=== PATIENT | female | born 1965 | race Caucasian/White ===

== ENCOUNTER 2020-02-24 13:56 | Outpatient (CLI) | payer OTHER ==
--- NOTE | 2020-02-24 15:01 | XRAY Report ---
PROCEDURE: Shoulder 3 View RT INDICATIONS: REPETITIVE STRAIN INJURY OF R SHOULDER TECHNIQUE: 3 views of the shoulder were acquired. COMPARISON: None. FINDINGS: Bones: No fractures or dislocations. No suspicious bony lesions. Mild degenerative changes are pre sent at the acromioclavicular joint. Visualized ribs appear intact. Soft tissues: No suspicious soft tissue calcifications. IMPRESSION: Mild degenerative change. No acute radiographic findings. If pain persists, cross-sectio nal imaging could be considered to further characterize findings. Reviewed by: Calista Jamison MD on 02/24/2020 1:59 PM [facility] Approved by: Calista Jamison MD on 02/24/2020 1:59 PM [facility] Station ID: [id number]
== END 2020-02-24 23:59 | disposition home or self-care (01) ==
LOC: DI.N 13:56
PROVIDERS: ATTEND Physician Assistant Medical
DX: M70.911 Unspecified soft tissue disorder related to use, overuse and pressure, right shoulder (principal); M19.011 Primary osteoarthritis, right shoulder

== ENCOUNTER 2020-03-06 09:20 | Outpatient (CLI) | payer OTHER ==
[2020-03-06 11:50] LABS: BASOPHILS % (AUTO) 0.3 %; EOSINOPHILS # (AUTO) 0.2 10^3/uL (0.0-0.7); EOSINOPHILS % (AUTO) 2.7 %; HGB - HEMOGLOBIN 14.2 g/dL (12.0-16.0); LYMPHOCYTES % (AUTO) 15.5 %; MEAN CORPUSCULAR HEMOGLOBIN 31.6 pg (27.0-31.0); MEAN CORPUSCULAR VOLUME 95.8 fL (81.0-99.0); MEAN PLATELET VOLUME 11.1 fL (7.9-10.8); MONOCYTES # (AUTO) 0.6 10^3/uL (0.0-1.0); NEUTROPHILS # (AUTO) 4.8 10^3/uL (1.5-6.6); NEUTROPHILS % (AUTO) 72.2 %; PLT - PLATELET COUNT 266 10^3/uL (130-450); RED BLOOD COUNT 4.49 10^6/uL (4.20-5.40); RED CELL DISTRIBUTION WIDTH 14.1 % (12.0-15.0); WHITE BLOOD COUNT 6.6 x10^3/uL (4.8-10.8)
[2020-03-06 12:30] LABS: ALBUMIN 4.2 g/dL (3.2-5.5); ALBUMIN/GLOBULIN RATIO 1.5 (1.0-2.2); ALKALINE PHOSPHATASE 106 IU/L (42-121); ALT ALANINE AMINOTRANSFERASE 29 IU/L (10-60); AST ASPARTATE AMINOTRANSFERASE 24 IU/L (10-42); BILIRUBIN,TOTAL 0.6 mg/dL (0.2-1.0); BUN - BLOOD UREA NITROGEN 16 mg/dL (6-20); CALCIUM 9.5 mg/dL (8.5-10.3); CARBON DIOXIDE - CO2 23 mmol/L (21-32); CHLORIDE 106 mmol/L (101-111); CHOL/HDL RATIO 4.7 (<4.4); CHOLESTEROL 258 mg/dL; CREATININE 0.8 mg/dL (0.4-1.0); GLUCOSE 101 mg/dL (70-100); HDL CHOLESTEROL 55 mg/dL; LDL CHOLESTEROL,CALCULATED 175 mg/dL; LDL/HDL RATIO 3.2 (<4.4); SODIUM 142 mmol/L (135-145); VLDL CHOLESTEROL 28 mg/dL
== END 2020-03-06 23:59 | disposition home or self-care (01) ==
LOC: LAB.WCP 09:20
PROVIDERS: ATTEND Family Medicine
DX: R53.82 Chronic fatigue, unspecified (principal); G60.9 Hereditary and idiopathic neuropathy, unspecified; G25.81 Restless legs syndrome; K58.9 Irritable bowel syndrome, unspecified; G35 Multiple sclerosis
CPT/HCPCS: 36415; 80053; 80061; 83721; 84443; 85025

== ENCOUNTER 2021-06-16 16:30 | Outpatient (CLI) | payer OTHER ==
--- NOTE | 2021-06-16 17:05 | XRAY Report ---
PROCEDURE: Toe(s) RT INDICATIONS: R GREAT TOE PX TECHNIQUE: 3 views of the right first toe(s) acquired. COMPARISON: None FINDINGS: Bones: No fractures or dislocations. No suspicious bony lesions. Fixation hardware noted in the mid and hindfoot Soft tissues: No suspicious soft tissue densities. IMPRESSION: No fracture. No acute osseous lesion. If there are persistent symptoms or continued clinical concern for pathology, then repeat plain film radiographs (7-10 days) or advanced imaging (CT, MR, bone scan) should be considered for further evaluation. Reviewed by: Kelin Campbell MD, PhD on 06/16/2021 5:04 PM PDT Approved by: Kelin Campbell MD, PhD on 06/16/2021 5:04 PM PDT Station ID: [id number]
== END 2021-06-16 23:59 | disposition home or self-care (01) ==
LOC: DI.N 16:30
PROVIDERS: ATTEND Family Medicine
DX: M79.674 Pain in right toe(s) (principal)

== ENCOUNTER 2021-07-17 13:19 | Emergency (ER) | payer OTHER ==
--- NOTE | 2021-07-17 14:09 | ED Physician Documentation ---
PD HPI CHEST PAIN - Stated complaint Stated Complaint: C+ CHEST PX/ARM NUMBNESS - Chief complaint Chief Complaint: General - History obtained from History obtained from: Patient - History of Present Illness Timing - onset: How many days ago (2) Timing - onset during: Light activity Timing - duration: Days Timing - details: Gradual onset (has had feeling of numbness in arms and chest, with tightness in chest. Has had some cough for about 14 days and had positive COVID test on 8th (12 days ago). Rx with Paxlovid and developed the numbness/chest tightness. Stopped the meds. Has continued with the symptoms though.), Waxing and waning Quality: Tightness Location: Substernal, Left shoulder/arm, Right shoulder/arm Radiation: No: Jaw, Neck, Abdominal Improved by: Rest Worsened by: Inspiration, Movement. No: Palpation Associated symptoms: Shortness of air, Nausea Similar symptoms before: Has not had sx before (history of MS but has not had arm numbness like this with it before.) Recently seen: Clinic Review of Systems Constitutional: reports: Myalgias, Fatigue. denies: Fever, Chills Nose: denies: Rhinorrhea / runny nose, Congestion Throat: denies: Sore throat Cardiac: reports: Chest pain / pressure. denies: Palpitations, Pedal edema, Calf pain Respiratory: reports: Dyspnea, Cough. denies: Wheezing GI: denies: Abdominal Pain, Nausea, Vomiting, Diarrhea Skin: denies: Rash, Lesions Neurologic: reports: Headache PD PAST MEDICAL HISTORY - Past Medical History Cardiovascular: None Respiratory: None Neuro: Multiple sclerosis Endocrine/Autoimmune: None - Present Medications Home Medications: Ambulatory Orders Medication Instructions Recorded Confirmed Albuterol Sulf [Ventolin Hfa 2 - 3 puffs INH Q4HR PRN #1 inhaler 07/17/21 Inhaler] Benzonatate [Tessalon] 100 mg PO TID PRN #20 cap 07/17/21 Ondansetron Odt [Zofran] 4 mg TL Q6H PRN #10 tablet 07/17/21 dexAMETHasone [Decadron] 4 mg PO DAILY #5 tablet 07/17/21 oxyCODONE [Roxicodone] 5 mg PO Q6H PRN #10 tablet 07/17/21 - Allergies Allergies/Adverse Reactions: Allergies Allergy/AdvReac Type Severity Reaction Status Date / Time prednisone Allergy Unknown Verified 07/17/21 13:39 PD ED PE NORMAL - Vitals Vital signs reviewed: Yes - General General: Alert and oriented X 3, No acute distress, Well developed/nourished - HEENT HEENT: Pharynx benign - Neck Neck: Supple, no meningeal sign, No adenopathy, No JVD - Cardiac Cardiac: RRR, No murmur - Respiratory Respiratory: No respiratory distress, Clear bilaterally - Abdomen Abdomen: Soft, Non tender - Derm Derm: Normal color, Warm and dry - Extremities Extremities: No tenderness to palpate, Normal ROM s pain, No calf tenderness / cord, Other (mild edema in both ankles. ) - Neuro Neuro: Alert and oriented X 3, environmental specialist 2-12 intact, No motor deficit, No sensory deficit, Normal speech Eye Opening: Spontaneous Motor: Obeys Commands Verbal: Oriented GCS Score: 15 Results - Vitals Vitals: Oxygen O2 Source Room air - EKG (time done) 13:37 Rate: Rate (enter#) (86) Rhythm: NSR Neffs: Normal Intervals: Normal MA QRS: Poor R wave progression Ischemia: No: Normal ST segments, ST elevation c/w ischemia, ST elevation c/w repol, ST depression - Labs Labs: Laboratory Tests 07/17/21 07/17/21 07/17/21 15:05 15:05 15:05 WBC 6.7 RBC 3.88 L Hgb 11.7 L Hct 37.4 MCV 96.4 MCH 30.2 MCHC 31.3 L RDW 13.8 Plt Count 230 MPV 10.4 Neut # (Auto) 3.9 Lymph # (Auto) 1.8 [place] # (Auto) 0.8 Eos # (Auto) 0.1 Baso # (Auto) 0.0 Absolute Nucleated RBC 0.00 Nucleated RBC % 0.0 Sodium 142 Potassium 3.6 Chloride 108 Carbon Dioxide 27 Anion Gap 7.0 BUN 17 Creatinine 0.6 Estimated GFR (MDRD) 104 Glucose 103 H Calcium 8.6 Magnesium 2.2 Total Bilirubin 0.3 AST 18 ALT 19 Alkaline Phosphatase 104 Troponin I High Sens 3.9 B-Natriuretic Peptide Total Protein 6.2 L Albumin 3.5 Globulin 2.7 Albumin/Globulin Ratio 1.3 Lipase 47 07/17/21 15:05 WBC RBC Hgb Hct MCV MCH MCHC RDW Plt Count MPV Neut # (Auto) Lymph # (Auto) [place] # (Auto) Eos # (Auto) Baso # (Auto) Absolute Nucleated RBC Nucleated RBC % Sodium Potassium Chloride Carbon Dioxide Anion Gap BUN Creatinine Estimated GFR (MDRD) Glucose Calcium Magnesium Total Bilirubin AST ALT Alkaline Phosphatase Troponin I High Sens B-Natriuretic Peptide 112 H Total Protein Albumin Globulin Albumin/Globulin Ratio Lipase - Rads (name of study) chest xray Radiology: Prelim report reviewed, See rad report PD MEDICAL DECISION MAKING - ED course Complexity details: considered differential (unclear if the arm numbness is related to her MS or chest inflammation from cough. But does not seem to relate to CHF/NH nor pneumonia/PTX. No calf tenderness. ), d/w patient Departure - Departure Disposition: 01 Home, Self Care Clinical Impression: Chest discomfort, COVID-19, History of multiple sclerosis Condition: Stable Record reviewed to determine appropriate education?: Yes Follow-Up: Maciel Mccormack MD [Primary Care Provider] - Prescriptions: Albuterol Sulf [Ventolin Hfa Inhaler] 2 - 3 puffs INH Q4HR PRN #1 inhaler PRN Reason: Shortness Of Air/Wheezing dexAMETHasone [Decadron] 4 mg PO DAILY #5 tablet oxyCODONE [Roxicodone] 5 mg PO Q6H PRN #10 tablet PRN Reason: Pain Benzonatate [Tessalon] 100 mg PO TID PRN #20 cap PRN Reason: Cough Ondansetron Odt [Zofran] 4 mg TL Q6H PRN #10 tablet PRN Reason: Nausea / Vomiting Comments: Stay well stay well-hydrated. I would use the albuterol inhaler 2 to 3 puffs 4 times a day for the next several days to week to help with breathing. Decadron steroid daily for 5 more days for inflammation and in case this is some what related to your MS flaring. Tessalon if needed for cough. Use acetaminophen 4 times daily regularly for pains and muscle aches. To that add the oxycodone if needed every 6 hours. Combine that with ondansetron to reduce nausea. Recheck if not improving well over the next several days. Your chest x-ray, EKG, blood tests are good without any signs of heart failure, heart attack, pneumonia, fluid around the lungs. I transmitted prescriptions to [facility] pharmacy I am prescribing a short course of narcotic pain medication for you. These are potentially dangerous and addictive medications that should be used carefully. These medications may constipate you. Take an ydce-pqv-alibqid stool softener such as docusate twice daily with plenty of water while taking these medications. If you go 24 hours without a bowel movement, take aodk-txh-nyegkaw MiraLAX, per package instructions. Do not drink or drive while taking these medications. If you received narcotic or sedating medications while in the emergency department do not drive for 24 hours. Store this medication in a safe, secure place and out of reach of children. It is a violation of federal law to give or sell this medication to another person or to use in a manner other than prescribed. The ED will not refill narcotic prescriptions, including prescriptions lost or stolen. You can dispose of unwanted medications at the [facility] office or at several pharmacies such as [facility]. Discharge Date/Time: 07/17/21 16:54
[2021-07-17] MEDS ORDERED: BENZONATATE 100 MG CAPSULE PO STA (14:33)
[2021-07-17] MEDS ORDERED: ALBUTEROL 1 PUFF INH STA (14:33)
[2021-07-17] MEDS ORDERED: HYDROmorphone 0.5 MG/0.5 ML SYRINGE IVP STA (14:35)
[2021-07-17] MEDS ORDERED: KETOROLAC 15 MG/ML VIAL IVP STA (14:35)
[2021-07-17 15:10] LABS: BASOPHILS % (AUTO) 0.4 %; EOSINOPHILS # (AUTO) 0.1 10^3/uL (0.0-0.7); EOSINOPHILS % (AUTO) 1.9 %; HCT - HEMATOCRIT 37.4 % (37.0-47.0); HGB - HEMOGLOBIN 11.7 g/dL (12.0-16.0); LYMPHOCYTES # (AUTO) 1.8 10^3/uL (1.5-3.5); LYMPHOCYTES % (AUTO) 26.5 %; MEAN CORPUSCULAR HEMOGLOBIN 30.2 pg (27.0-31.0); MEAN CORPUSCULAR HGB CONC 31.3 g/dL (32.0-36.0); MEAN CORPUSCULAR VOLUME 96.4 fL (81.0-99.0); MEAN PLATELET VOLUME 10.4 fL (7.9-10.8); MONOCYTES # (AUTO) 0.8 10^3/uL (0.0-1.0); MONOCYTES % (AUTO) 11.8 %; NEUTROPHILS # (AUTO) 3.9 10^3/uL (1.5-6.6); NEUTROPHILS % (AUTO) 58.8 %; PLT - PLATELET COUNT 230 10^3/uL (130-450); RED BLOOD COUNT 3.88 10^6/uL (4.20-5.40); RED CELL DISTRIBUTION WIDTH 13.8 % (12.0-15.0); WHITE BLOOD COUNT 6.7 x10^3/uL (4.8-10.8)
[2021-07-17] MEDS ORDERED: DEXAMETHASONE 10 MG/ML VIAL PO STA (15:20)
[2021-07-17] MEDS ORDERED: CHERRY SYRUP 10 ML UDC PO ONE (15:20)
[2021-07-17] MEDS ORDERED: KETOROLAC 30 MG/ML VIAL IM STA (15:20)
[2021-07-17] MEDS ORDERED: HYDROcod/ACETAM 5/325 MG TABLET PO STA (15:20)
[2021-07-17 15:25] LABS: ALBUMIN 3.5 g/dL (3.2-5.5); ALBUMIN/GLOBULIN RATIO 1.3 (1.0-2.2); BILIRUBIN,TOTAL 0.3 mg/dL (0.2-1.0); CALCIUM 8.6 mg/dL (8.5-10.3); CREATININE 0.6 mg/dL (0.4-1.0); MAGNESIUM 2.2 mg/dL (1.7-2.8); POTASSIUM 3.6 mmol/L (3.5-5.0); TOTAL PROTEIN 6.2 g/dL (6.7-8.2)
--- NOTE | 2021-07-17 15:33 | XRAY Report ---
PROCEDURE: Chest 1 View X-Ray INDICATIONS: Chest Pain TECHNIQUE: One view of the chest was acquired. COMPARISON: None. FINDINGS: Surgical changes and devices: None. Lungs and pleura: No pleural effusions or pneumothorax. Lungs are clear. Mediastinum: Mediastinal contours appear normal. Heart size is mildly enlarged. Bones and chest wall: No suspicious bony lesions. Overlying soft tissues appear unremarkable. IMPRESSION: No acute cardiopulmonary pathology. Reviewed by: Pierre Pool MD on 07/17/2021 3:32 PM PDT Approved by: Pierre Pool MD on 07/17/2021 3:32 PM PDT Station ID: [id number]
[2021-07-17] MEDS ORDERED: ONDANSETRON ODT 4 MG TABLET TL STA (16:28)
[2021-07-17 16:55] VITALS: BP 161/109
== END 2021-07-17 16:54 | disposition home or self-care (01) ==
LOC: ED 13:19
DX: U07.1 COVID-19 (principal); R07.89 Other chest pain; M25.512 Pain in left shoulder; M25.511 Pain in right shoulder; G35 Multiple sclerosis
CPT/HCPCS: 36415; 71045; 80053; 83690; 83735; 83880; 84484; 85025; 93005; 94640; 96372; 99284; A9270; Q0162

== ENCOUNTER 2021-11-17 14:33 | Emergency (ER) | payer OTHER ==
[2021-11-17 14:41] VITALS: BP 131/107
[2021-11-17] MEDS ORDERED: TETANUS/DIPHTHERIA/PERTUSSIS 0.5 ML SYRINGE IM ONE (14:42)
[2021-11-17] MEDS ORDERED: cephALEXin 250 MG CAPSULE PO STA (15:14)
[2021-11-17] MEDS ORDERED: BACITRACIN ZINC OINT 1 PACKET TOP STA (15:14)
--- NOTE | 2021-11-17 15:16 | ED Physician Documentation ---
PD HPI UPPER EXT INJURY - Stated complaint Stated Complaint: RT ARM CUT - Chief complaint Chief Complaint: Laceration - History obtained from History obtained from: Patient - Additonal information Additional information: 56-year-old woman with unknown tetanus status was driving her tractor on her own property and got cut by a branch to the area of the right antecubital fossa. No other injuries. Review of Systems Constitutional: reports: Reviewed and negative Ears: reports: Reviewed and negative Nose: reports: Reviewed and negative Throat: reports: Reviewed and negative Cardiac: reports: Reviewed and negative Respiratory: reports: Reviewed and negative PD PAST MEDICAL HISTORY - Past Medical History Cardiovascular: None Respiratory: None Neuro: Multiple sclerosis Endocrine/Autoimmune: None Musculoskeletal: Fibromyalgia - Present Medications Home Medications: Ambulatory Orders Medication Instructions Recorded Confirmed Albuterol Sulf [Ventolin Hfa 2 - 3 puffs INH Q4HR PRN #1 inhaler 07/17/21 Inhaler] Benzonatate [Tessalon] 100 mg PO TID PRN #20 cap 07/17/21 Ondansetron Odt [Zofran] 4 mg TL Q6H PRN #10 tablet 07/17/21 dexAMETHasone [Decadron] 4 mg PO DAILY #5 tablet 07/17/21 oxyCODONE [Roxicodone] 5 mg PO Q6H PRN #10 tablet 07/17/21 Bacitracin Zinc Oint 1 applic TOP BID #1 gm 11/17/21 Oxycodone HCl/Acetaminophen 1 - 2 each PO Q6H PRN #10 tablet 11/17/21 [Percocet 5-325 mg Tablet] cephALEXin [Keflex] 500 mg PO Q6H #20 cap 11/17/21 - Allergies Allergies/Adverse Reactions: Allergies Allergy/AdvReac Type Severity Reaction Status Date / Time prednisone Allergy Unknown Verified 11/17/21 14:38 - Social History Does the pt smoke?: No Smoking Status: Never smoker Does the pt drink ETOH?: Yes Does the pt have substance abuse?: No - POLST Patient has POLST: No PD ED PE NORMAL - Vitals Vital signs reviewed: Yes - General General: Alert and oriented X 3, No acute distress - Extremities Extremities: Other (There is an 8 cm horizontal laceration just above the right antecubital fossa with fat exposed and a lot of dirt and grit in it. There are also staccato scrapes distal to that. She has normal neurovascular function distal to this) - Neuro Neuro: Alert and oriented X 3, Normal speech Results - Vitals Vitals: Vital Signs - 24 hr 11/17/21 14:38 Temperature 36.4 C L Heart Rate 80 Respiratory 18 Rate Blood Pressure 131/107 H O2 Saturation 98 Oxygen O2 Source Room air Procedures - Laceration (location) RUE Length in cm: 8 Wound type: Into subcut fat, Heavily Contaminated Neurovascular status: Sensory intact, Motor intact, Vascular intact Anesthesia: Lidocaine 1% with epi Wound preparation: Chlorhexadine, Irrigated copiously NS, Debrided extensively (Extensive revision of the wound margins as well as excision of subcutaneous fat to get rid of organic debris in the wound.) Skin layer closure: Nylon, Interrupted, Size #-0 - enter number (3-0), Sutures - enter # (12) Other: Tetanus booster given Departure - Departure Disposition: Home, Self Care Clinical Impression: Laceration of arm Condition: Good Record reviewed to determine appropriate education?: Yes Instructions: ED Laceration All Prescriptions: Bacitracin Zinc Oint 1 applic TOP BID #1 gm cephALEXin [Keflex] 500 mg PO Q6H #20 cap Oxycodone HCl/Acetaminophen [Percocet 5-325 mg Tablet] 1 - 2 each PO Q6H PRN #10 tablet PRN Reason: pain Comments: [facility] [place] Come back for any signs of infection which would include: Redness, swelling, drainage, increased pain, or fevers. You can wash it soap and water. Keep it covered and moist with bacitracin ointment which is available over the counter; avoid neosporin. Follow-up with your physician in about 14 days for suture removal. I am prescribing a short course of narcotic pain medication for you. These are potentially dangerous and addictive medications that should be used carefully. These medications may constipate you. Take an jnoz-fxk-jjgjers stool softener (docusate) twice daily with plenty of water while taking these medications. If you go 24 hours without a bowel movement, take tmrq-pzi-ihatrmk miralax, per package instructions. Do not drink or drive while taking these medications. If you received narcotic or sedating medications while in the emergency department, do not drive for 24 hours. Store this medication in a safe, secure place and out of reach of children. It is a violation of federal law to give or sell this medication to another person or to use in a manner other than prescribed. The ED will not refill narcotic prescriptions, including prescriptions lost or stolen. To dispose of unwanted medications: 1. [facility] at [address] in [place] has a medication drop box. They accept prescription medications (in pill form) Tuesday through Tuesday 9:00 a.m. to 5:00 p.m. 2. [facility] accepts prescription medications (in pill form only) for disposal year round. Call for more information. 3. Contact the [facility] for the next [facility] sponsored prescription drug collection event. , [phone], or [phone]; Note that many narcotic pain relievers also contain Tylenol/acetaminophen. Please ensure that your total dose of acetaminophen from all sources does not exceed 3 g (3000 mg) per day.
== END 2021-11-17 15:45 | disposition home or self-care (01) ==
LOC: ED 14:33
DX: S41.111A Laceration without foreign body of right upper arm, initial encounter (principal); W45.8XXA Other foreign body or object entering through skin, initial encounter; Y93.H9 Activity, other involving exterior property and land maintenance, building and construction; Y92.89 Other specified places as the place of occurrence of the external cause; Y99.8 Other external cause status
CPT/HCPCS: 12004; 90471; 90715; 99283; A9270

== ENCOUNTER 2021-11-26 12:05 | Outpatient (CLI) | payer OTHER | END 2021-11-26 23:59 | disposition home or self-care (01) | LOC: LAB.N 12:05 | PROVIDERS: ATTEND Family Medicine | DX: L03.90 Cellulitis, unspecified (principal) | CPT/HCPCS: 87070; 87077; 87181; 87205 ==

== ENCOUNTER 2022-06-09 16:40 | Outpatient (CLI) | payer OTHER ==
--- NOTE | 2022-06-09 18:09 | XRAY Report ---
PROCEDURE: Lumbar Spine 2 View INDICATIONS: PAIN IN LEFT KNEE,SCIATIC NEUROPATHY LEFT TECHNIQUE: 3 views of the lumbar spine were acquired. COMPARISON: None. FINDINGS: Bones: 5 nhi-ezm-nchcnfm vertebrae are present. No lumbar vertebral body fracture identified. Simila r millimeters retrolisthesis L5 on S1, 3 mm retrolisthesis L4 and L5, 3 mm retrolisthesis L3 on L4. M oderate-severe multilevel degenerative changes with disc height loss, endplate spurring, and facet ar thropathy. Soft tissues: Overlying bowel gas pattern is normal. No suspicious soft tissue calcifications. IMPRESSION: Multilevel degenerative changes of the lumbar spine. If symptoms persist, follow-up radi ographs and/or CT or MRI may be helpful for further evaluation. Reviewed by: Roel Valerio MD on 06/09/2022 6:07 PM PDT Approved by: Roel Valerio MD on 06/09/2022 6:07 PM PDT Station ID: [id number]
--- NOTE | 2022-06-09 18:11 | XRAY Report ---
PROCEDURE: Knee 2 View LT INDICATIONS: PAIN IN LEFT KNEE,SCIATIC NEUROPATHY LEFT TECHNIQUE: 2 views of the left knee(s) were acquired. COMPARISON: None. FINDINGS: No acute fracture or dislocation identified. Moderate medial compartment and mild lateral compartment joint space narrowing. No definite joint effusion visualized. IMPRESSION: No acute fracture or dislocation identified. Degenerative changes of the knee are present. If symptoms persist, follow-up radiographs and/or CT or MRI may be helpful for further evaluation. Reviewed by: Roel Valerio MD on 06/09/2022 6:10 PM PDT Approved by: Roel Valerio MD on 06/09/2022 6:10 PM PDT Station ID: [id number]
== END 2022-06-09 16:41 | disposition home or self-care (01) ==
LOC: DI 16:40
PROVIDERS: ATTEND Registered Nurse
DX: M17.12 Unilateral primary osteoarthritis, left knee (principal); M47.816 Spondylosis without myelopathy or radiculopathy, lumbar region

== ENCOUNTER 2022-06-28 10:27 | Outpatient (CLI) | payer OTHER ==
[2022-06-28 12:15] LABS: BASOPHILS % (AUTO) 0.5 %; EOSINOPHILS # (AUTO) 0.2 10^3/uL (0.0-0.7); EOSINOPHILS % (AUTO) 2.7 %; HCT - HEMATOCRIT 40.4 % (37.0-47.0); HGB - HEMOGLOBIN 12.1 g/dL (12.0-16.0); LYMPHOCYTES # (AUTO) 1.4 10^3/uL (1.5-3.5); LYMPHOCYTES % (AUTO) 19.3 %; MEAN CORPUSCULAR HEMOGLOBIN 27.7 pg (27.0-31.0); MEAN CORPUSCULAR VOLUME 92.4 fL (81.0-99.0); MEAN PLATELET VOLUME 11.7 fL (7.9-10.8); MONOCYTES # (AUTO) 0.7 10^3/uL (0.0-1.0); NEUTROPHILS # (AUTO) 5.1 10^3/uL (1.5-6.6); NEUTROPHILS % (AUTO) 68.2 %; PLT - PLATELET COUNT 227 10^3/uL (130-450); RED BLOOD COUNT 4.37 10^6/uL (4.20-5.40); RED CELL DISTRIBUTION WIDTH 15.6 % (12.0-15.0); WHITE BLOOD COUNT 7.5 x10^3/uL (4.8-10.8)
[2022-06-28 12:36] LABS: THYROID STIMULATING HORMONE 1.34 uIU/mL (0.34-5.60)
[2022-06-28 12:37] LABS: FREE T3 3.6 pg/mL (2.5-3.9)
[2022-06-28 12:38] LABS: FREE T4 (FREE THYROXINE) 0.76 ng/dL (0.58-1.64)
[2022-06-28 12:41] LABS: BILIRUBIN,URINE NEGATIVE (NEGATIVE); GLUCOSE, URINE (UA) NEGATIVE (NEGATIVE); KETONES,URINE (UA) NEGATIVE (NEGATIVE); LEUKOCYTE ESTERASE, URINE SMALL (NEGATIVE); NITRITE,URINE POSITIVE (NEGATIVE); OCCULT BLOOD,URINE NEGATIVE (NEGATIVE); PROTEIN,URINE NEGATIVE (NEGATIVE); UROBILINOGEN,URINE 0.2 (NORMAL) E.U./dL (NORMAL)
[2022-06-28 12:49] LABS: CLARITY,URINE CLEAR (CLEAR); RBC,URINE 0-5 /HPF (0-5); WBC,URINE >25 /HPF (0-5)
[2022-06-28 12:50] LABS: BACTERIA,URINE Moderate /HPF (None Seen); SQUAMOUS EPITHELIAL CELL,UR FEW Squamous (<= Few)
[2022-06-28 13:40] LABS: ALBUMIN 3.6 g/dL (3.2-5.5); ALBUMIN/GLOBULIN RATIO 1.2 (1.0-2.2); ALKALINE PHOSPHATASE 105 IU/L (42-121); ALT ALANINE AMINOTRANSFERASE 18 IU/L (10-60); AST ASPARTATE AMINOTRANSFERASE 18 IU/L (10-42); BILIRUBIN,TOTAL 0.4 mg/dL (0.2-1.0); BUN - BLOOD UREA NITROGEN 15 mg/dL (6-20); CALCIUM 8.8 mg/dL (8.5-10.3); CARBON DIOXIDE - CO2 27 mmol/L (21-32); CHLORIDE 106 mmol/L (101-111); CHOL/HDL RATIO 4.1 (<4.4); CHOLESTEROL 211 mg/dL; CREATININE 0.8 mg/dL (0.4-1.0); GFR - MDRD 74 (>89); GLUCOSE 95 mg/dL (70-100); HDL CHOLESTEROL 51 mg/dL; LDL CHOLESTEROL,CALCULATED 106 mg/dL; LDL/HDL RATIO 2.1 (<4.4); POTASSIUM 4.5 mmol/L (3.5-5.0); SODIUM 140 mmol/L (135-145); TOTAL PROTEIN 6.5 g/dL (6.7-8.2); TRIGLYCERIDES 271 mg/dL; VLDL CHOLESTEROL 54 mg/dL
== END 2022-06-28 10:28 | disposition home or self-care (01) ==
LOC: LAB.N 10:27
PROVIDERS: ATTEND Family Medicine
DX: R39.15 Urgency of urination (principal); G47.419 Narcolepsy without cataplexy; R60.1 Generalized edema; Z98.84 Bariatric surgery status; M54.12 Radiculopathy, cervical region; G43.909 Migraine, unspecified, not intractable, without status migrainosus; E66.01 Morbid (severe) obesity due to excess calories; G60.9 Hereditary and idiopathic neuropathy, unspecified; G25.81 Restless legs syndrome; K58.9 Irritable bowel syndrome, unspecified; G35 Multiple sclerosis
CPT/HCPCS: 36415; 80053; 80061; 81001; 83721; 84439; 84443; 84481; 85025; 87086; 87181

== ENCOUNTER 2023-02-10 08:00 | Outpatient (CLI) | payer OTHER | END 2023-02-10 23:59 | disposition home or self-care (01) | LOC: LAB 08:00 | PROVIDERS: ATTEND Urology | DX: N39.3 Stress incontinence (female) (male) (principal) | CPT/HCPCS: 87086 ==

== ENCOUNTER 2023-04-05 13:59 | Emergency (ER) | payer OTHER ==
--- NOTE | 2023-04-05 14:53 | XRAY Report ---
PROCEDURE: Chest 2V INDICATIONS: cough TECHNIQUE: 2 views of the chest were acquired. COMPARISON: None. FINDINGS: Surgical changes and devices: None. Lungs and pleura: No pleural effusions or pneumothorax. Lungs are clear. Mediastinum: Mediastinal contours appear normal. Heart size is normal. Bones and chest wall: No suspicious bony lesions. Overlying soft tissues appear unremarkable. IMPRESSION: No acute cardiopulmonary process. Reviewed by: Myrna Marinelli MD on 04/05/2023 2:52 PM PST Approved by: Myrna Marinelli MD on 04/05/2023 2:52 PM [facility] Station ID: [id number]
[2023-04-05] MEDS: IPRATROPIUM/ALBUTEROL 3 ML NEB INH STA (15:35)
--- NOTE | 2023-04-05 15:35 | ED Physician Documentation ---
PD HPI URI - Stated complaint Stated Complaint: SOA/COUGH - Chief complaint Chief Complaint: Resp - History obtained from History obtained from: Patient - Additional information Additional information: Patient is a 57-year-old female with a history of MS, asthma presenting for evaluation of 4-day history of cough and congestion and chest tightness. Patient reports she has been using her albuterol inhaler without significant improvement. She has had nasal congestion and cough but unable to produce any sputum. Says that her was ill with similar symptoms. No fever. No chest pain. No abdominal symptoms. Is on maintenance medications for her MS. Denies recent travel.Has not taken a home COVID test. 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 - Present Medications Home Medications: Ambulatory Orders Medication Instructions Recorded Confirmed Albuterol Sulf [Ventolin Hfa 2 - 3 puffs INH Q4HR PRN #1 inhaler 07/17/21 Inhaler] Benzonatate [Tessalon] 100 mg PO TID PRN #20 cap 07/17/21 Ondansetron Odt [Zofran] 4 mg TL Q6H PRN #10 tablet 07/17/21 dexAMETHasone [Decadron] 4 mg PO DAILY #5 tablet 07/17/21 oxyCODONE [Roxicodone] 5 mg PO Q6H PRN #10 tablet 07/17/21 Bacitracin Zinc Oint 1 applic TOP BID #1 gm 11/17/21 Oxycodone HCl/Acetaminophen 1 - 2 each PO Q6H PRN #10 tablet 11/17/21 [Percocet 5-325 mg Tablet] cephALEXin [Keflex] 500 mg PO Q6H #20 cap 11/17/21 Albuterol Sulf [Ventolin Hfa 1 - 2 puffs INH Q4HR PRN #1 each 04/05/23 Inhaler] predniSONE [Deltasone] 60 mg PO DAILY 4 Days #12 tablet 04/05/23 - Allergies Allergies/Adverse Reactions: Allergies Allergy/AdvReac Type Severity Reaction Status Date / Time No Known Drug Allergies Allergy Verified 04/05/23 14:14 - Social History Does the pt smoke?: No Smoking Status: Never smoker Does the pt drink ETOH?: Yes Does the pt have substance abuse?: No - POLST Patient has POLST: No PD ED PE NORMAL - General General: Alert and oriented X 3, No acute distress, Well developed/nourished - HEENT HEENT: Atraumatic, Moist mucous membranes, Pharynx benign - Neck Neck: Supple, no meningeal sign - Cardiac Cardiac: RRR, Strong equal pulses - Respiratory Respiratory: No respiratory distress, Other (Mild expiratory wheeze bilaterally) - Derm Derm: Warm and dry - Neuro Neuro: Alert and oriented X 3, No motor deficit, Normal speech Results - Vitals Vitals: Vital Signs - 24 hr 04/05/23 04/05/23 04/05/23 14:08 15:38 16:23 Temperature 36.5 C Heart Rate 80 79 84 Respiratory 18 17 15 Rate Blood Pressure 140/73 H 141/75 H O2 Saturation 98 100 Oxygen O2 Source Room air - Labs Labs: Laboratory Tests 04/05/23 14:16 Nasal Adenovirus (PCR) NOT DETECTED Nasal B. parapertussis DNA (PCR) NOT DETECTED Nasal Coronavir 229E PCR NOT DETECTED Nasal Coronavir HKU1 PCR NOT DETECTED Nasal Coronavir NL63 PCR NOT DETECTED Nasal Coronavir OC43 PCR NOT DETECTED Nasal Enterovir/Rhinovir PCR NOT DETECTED Nasal Influenza B PCR NOT DETECTED Nasal Influenza A PCR NOT DETECTED Nasal Parainfluen 1 PCR NOT DETECTED Nasal Parainfluen 2 PCR NOT DETECTED Nasal Parainfluen 3 PCR NOT DETECTED Nasal Parainfluen 4 PCR NOT DETECTED Nasal RSV (PCR) DETECTED A Nasal B.pertussis DNA PCR NOT DETECTED Nasal C.pneumoniae (PCR) NOT DETECTED Gigi Human Metapneumo PCR NOT DETECTED Nasal M.pneumoniae (PCR) NOT DETECTED Nasal SARS-CoV-2 (PCR) NOT DETECTED PD Medical Decision Making - ED course Complexity details: reviewed results, d/w patient ED course: Patient is a 57-year-old female presenting for evaluation of cough and congestion for few days. Vital signs are stable. Has mild wheezing noted on exam.Does have a history of asthma. Given a breathing treatment with improvement. Started on a course of prednisone. Chest x-ray which I reviewed is negative for pneumonia. No indication for pneumonia at this time. Respiratory swab is positive for RSV. Patient counseled on continued supportive care. Will continue on albuterol and prednisone. Counseled on concerning symptoms to return for. Departure - Departure Disposition: 01 Home, Self Care Clinical Impression: RSV bronchitis Condition: Stable Instructions: ED Bronchitis Asthmatic Prescriptions: Albuterol Sulf [Ventolin Hfa Inhaler] 1 - 2 puffs INH Q4HR PRN #1 each PRN Reason: Shortness Of Air/Wheezing predniSONE [Deltasone] 60 mg PO DAILY 4 Days #12 tablet Comments: You have tested positive for RSV which is a respiratory virus. Unfortunately antibiotics will not help with this. You do have wheezing on exam Your asthma does seem to be exacerbated by the RSV. I am starting you on a course of prednisone.I also sent a refill of your inhaler. Your prescriptions were sent to [facility] in [place]. Please continue with acetaminophen or ibuprofen as needed for fevers and pain, hydration and rest. Return to the ER with any worsening. Next dose of prednisone is due April 06. You received the first dose today. Forms: PCP List Discharge Date/Time: 04/05/23 16:24
[2023-04-05 15:40] LABS: B. PARAPERTUSSIS- RESP PCR PAN NOT DETECTED; B. PERTUSSIS- RESP PCR PANEL NOT DETECTED; C. PNEUMONIAE- RESP PCR PANEL NOT DETECTED; CORONAVIRUS 229E-RESP PCR NOT DETECTED; CORONAVIRUS HKU1-RESP PCR NOT DETECTED; CORONAVIRUS NL63-RESP PCR NOT DETECTED; CORONAVIRUS OC43-RESP PCR NOT DETECTED; HUMAN METAPNEUMOVIRUS NOT DETECTED; INFLUENZA A- RESP PCR PANEL NOT DETECTED; INFLUENZA B - RESP PCR PANEL NOT DETECTED; M. PNEUMONIAE- RESP PCR PANEL NOT DETECTED; PARAINFLUENZA VIRUS 1 NOT DETECTED; PARAINFLUENZA VIRUS 2 NOT DETECTED; PARAINFLUENZA VIRUS 3 NOT DETECTED; PARAINFLUENZA VIRUS 4 NOT DETECTED; RHINOVIRUS/ENTEROVIRUS NOT DETECTED; RSV- RESP PCR PANEL DETECTED; SARS-CoV-2 -RESP PCR PANEL NOT DETECTED
[2023-04-05] MEDS: predniSONE 20 MG TABLET PO STA (16:00)
[2023-04-05 16:28] VITALS: BP 141/75; O2SAT 100
== END 2023-04-05 16:24 | disposition home or self-care (01) ==
LOC: ED 13:59
DX: J20.5 Acute bronchitis due to respiratory syncytial virus (principal); Z11.52 Encounter for screening for COVID-19
CPT/HCPCS: 87633; 94640; 99283; 99284

== ENCOUNTER 2023-09-22 10:12 | Outpatient (CLI) | payer OTHER ==
[2023-09-22 12:05] LABS: BASOPHILS % (AUTO) 0.6 %; EOSINOPHILS # (AUTO) 0.2 10^3/uL (0.0-0.7); EOSINOPHILS % (AUTO) 3.5 %; HCT - HEMATOCRIT 41.4 % (37.0-47.0); HGB - HEMOGLOBIN 12.2 g/dL (12.0-16.0); LYMPHOCYTES # (AUTO) 1.8 10^3/uL (1.5-3.5); LYMPHOCYTES % (AUTO) 26.9 %; MEAN CORPUSCULAR HEMOGLOBIN 26.9 pg (27.0-31.0); MEAN CORPUSCULAR HGB CONC 29.5 g/dL (32.0-36.0); MEAN CORPUSCULAR VOLUME 91.4 fL (81.0-99.0); MEAN PLATELET VOLUME 12.2 fL (7.9-10.8); MONOCYTES # (AUTO) 0.6 10^3/uL (0.0-1.0); MONOCYTES % (AUTO) 8.7 %; NEUTROPHILS # (AUTO) 3.9 10^3/uL (1.5-6.6); PLT - PLATELET COUNT 229 10^3/uL (130-450); RED BLOOD COUNT 4.53 10^6/uL (4.20-5.40); RED CELL DISTRIBUTION WIDTH 15.9 % (12.0-15.0); WHITE BLOOD COUNT 6.6 x10^3/uL (4.8-10.8)
[2023-09-22 12:37] LABS: THYROID STIMULATING HORMONE 2.35 uIU/mL (0.34-5.60)
[2023-09-22 12:40] LABS: ALBUMIN 4.3 g/dL (3.2-5.5); ALKALINE PHOSPHATASE 130 IU/L (42-121); ALT ALANINE AMINOTRANSFERASE 11 IU/L (10-60); AST ASPARTATE AMINOTRANSFERASE 15 IU/L (10-42); BILIRUBIN,TOTAL 0.4 mg/dL (0.2-1.0); BUN - BLOOD UREA NITROGEN 10 mg/dL (6-20); CALCIUM 9.3 mg/dL (8.5-10.3); CARBON DIOXIDE - CO2 24 mmol/L (21-32); CHLORIDE 107 mmol/L (101-111); CHOL/HDL RATIO 4.4 (<4.4); CHOLESTEROL 204 mg/dL; CREATININE 0.7 mg/dL (0.6-1.3); GFR - MDRD 86 (>89); GLUCOSE 113 mg/dL (74-104); HDL CHOLESTEROL 46 mg/dL; LDL CHOLESTEROL,CALCULATED 126 mg/dL; LDL/HDL RATIO 2.7 (<4.4); POTASSIUM 3.9 mmol/L (3.5-4.5); SODIUM 138 mmol/L (135-145); TOTAL PROTEIN 6.5 g/dL (6.4-8.9); TRIGLYCERIDES 159 mg/dL; VLDL CHOLESTEROL 32 mg/dL
== END 2023-09-22 10:13 | disposition home or self-care (01) ==
LOC: LAB.N 10:12
PROVIDERS: ATTEND Family Medicine
DX: E83.10 Disorder of iron metabolism, unspecified (principal); N39.3 Stress incontinence (female) (male); N32.81 Overactive bladder; G89.29 Other chronic pain; G47.419 Narcolepsy without cataplexy; Z98.84 Bariatric surgery status; G43.909 Migraine, unspecified, not intractable, without status migrainosus; E66.01 Morbid (severe) obesity due to excess calories
CPT/HCPCS: 36415; 80053; 80061; 83721; 84443; 85025